=== PATIENT | female | born 1995 | race Caucasian/White ===

== ENCOUNTER 2017-10-31 15:23 | Emergency (ER) | payer OTHER, SELFPAY ==
[2017-10-31 15:56] LABS: #Lymphocytes 2.2 thou/uL (1.20-3.40); #Monocytes 0.9 thou/uL (0.11-0.59); %Basophils 0.3 % (0.0-1.0); %Eosinophils 0.3 % (0.0-10.0); %Lymphocytes 16.9 % (21.0-51.0); %Monocytes 6.5 % (0.0-10.0); Hemoglobin 14.2 g/dL (12.0-16.0); Mean Corpuscular HGB CONC 34.4 g/dL (32.0-36.0); Mean Corpuscular Hemoglobin 32.1 pg (27.0-31.0); Mean Corpuscular Volume 93.3 fL (78.0-98.0); Mean Platelet Volume 7.7 fL (7.4-10.4); Platelet Count 232 thou/uL (130-400); RBC Distribution Width 11.2 % (11.5-14.5); Red Blood Cell (RBC) Count 4.44 mill/uL (4.20-5.40); White Blood Cell (WBC) Count 13.2 thou/uL (4.8-10.8)
[2017-10-31 15:58] LABS: Bilirubin Negative (Negative); Blood, Urine Large (Negative); Clarity CLOUDY (Clear); Glucose, Urine (Dipstick) Negative (Negative); Leukocyte Large (Negative); Nitrite Negative (Negative); Protein, Urine (Dipstick) 100 mg/dL (Neg-Trace); Specific Gravity, Urine 1.019 (1.002-1.036); Urobilinogen 0.2 mg/dL (0.2-1.0)
[2017-10-31 16:00] LABS: Bacteria/HPF 2+ HPF (None Seen); Hyaline Casts/LPF 0-3 HYALINE CAST LPF (0-3 Hyaline); Pathc Cast-AUWi Flag 0.58 (0-2.49); RBC/HPF GREATER THAN 50-TNTC HPF (0-3); Squamous Epithelial 0-3 HPF (0-3)
[2017-10-31 16:40] LABS: BHCG - Serum Negative (NEGATIVE); Pregs Control Background? CLEAR/WHITE (CLR/WHITE); Pregs Control Bar Appear? YES (CONTROL BAR)
== END 2017-10-31 17:19 | disposition home or self-care (01) ==
LOC: ERS 15:23
DX: N30.01 Acute cystitis with hematuria (principal); F17.210 Nicotine dependence, cigarettes, uncomplicated
CPT/HCPCS: 36415; 81003; 81015; 84703; 85025; 87077; 87086; 87186; 99283

== ENCOUNTER 2018-05-09 15:11 | Emergency (ER) | payer SELFPAY ==
[2018-05-09 16:16] LABS: Bilirubin Negative (Negative); Blood, Urine Large (Negative); Clarity TURBID (Clear); Glucose, Urine (Dipstick) Negative (Negative); Leukocyte Large (Negative); Nitrite Positive (Negative); Protein, Urine (Dipstick) 300 mg/dL (Neg-Trace); Urobilinogen 0.2 mg/dL (0.2-1.0)
[2018-05-09 16:19] LABS: Bacteria/HPF 4+ HPF (None Seen); Pregnancy Test - Urine (BHCG) Negative (Negative); Pregu Control Background? CLEAR/WHITE (CLR/WHITE); Pregu Control Bar Appear? YES (CONTROL BAR); RBC/HPF GREATER THAN 50-TNTC HPF (0-3); Squamous Epithelial 0-3 HPF (0-3)
[2018-05-09 16:21] LABS: Pathc Cast-AUWi Flag 4.04 (0-2.49)
[2018-05-09 16:30] LABS: Hyaline Casts/LPF 0-3 HYALINE CAST LPF (0-3 Hyaline); Other Casts/LPF None Seen LPF (0-3 Hyaline)
== END 2018-05-09 16:45 | disposition home or self-care (01) ==
LOC: ERS 15:11
DX: N39.0 Urinary tract infection, site not specified (principal); F17.210 Nicotine dependence, cigarettes, uncomplicated; Z71.6 Tobacco abuse counseling
CPT/HCPCS: 81003; 81015; 81025; 87077; 87086; 87186; 99406

== ENCOUNTER 2018-06-30 20:40 | Emergency (ER) | payer MEDICAID, OTHER ==
[2018-06-30] MEDS ORDERED: Acetaminophen 325 MG TAB ONE (22:28)
[2018-06-30] MEDS ORDERED: Bicillin LA 1.2 MILLION UNITS/2 ML SYRINGE ONE (22:28)
[2018-06-30] MEDS ORDERED: Dexamethasone 10 MG/ML VIAL ONE (22:29)
== END 2018-06-30 22:40 | disposition home or self-care (01) ==
LOC: ERS 20:40
DX: O99.511 Diseases of the respiratory system complicating pregnancy, first trimester (principal); J02.9 Acute pharyngitis, unspecified; O99.331 Smoking (tobacco) complicating pregnancy, first trimester; F17.210 Nicotine dependence, cigarettes, uncomplicated; Z3A.08 8 weeks gestation of pregnancy
CPT/HCPCS: 87081; 87430; 96372; J0561; J1100

== ENCOUNTER 2019-02-06 08:55 | Inpatient (IN) | payer OTHER ==
[2019-02-08] MEDS ORDERED: Bupivacaine 0.25% HCL 30 ML VIAL ONE (09:00)
[2019-02-08] MEDS ORDERED: Acetaminophen 500 MG TAB PO PRN (22:16)
[2019-02-08] MEDS ORDERED: Ibuprofen 800 MG TAB PO PRN (22:16)
[2019-02-08] MEDS ORDERED: Docusate 100 MG CAP PO PRN (22:16)
[2019-02-08] MEDS ORDERED: Lidocaine 1% (PF) 30 ML VIAL SC PRN (22:16)
[2019-02-08] MEDS ORDERED: NS / Oxytocin 40 units/1000ml 1,000 ML IV PRN (22:16)
[2019-02-08] MEDS ORDERED: Promethazine HCl 25 MG/ML VIAL IM PRN (22:16)
[2019-02-08] MEDS ORDERED: Diphenoxylate HCl/Atropine Tablet PO PRN ×2 (22:16)
[2019-02-08] MEDS ORDERED: Misoprostol 200 MCG TAB PR PRN (22:16)
[2019-02-08] MEDS ORDERED: hydrALAZINE 20 MG/ML VIAL SLOW IVP PRN (22:16)
[2019-02-08] MEDS ORDERED: NS w/ Oxytocin 10 units 500 ML IV SCH ×2 (22:16)
[2019-02-08] MEDS ORDERED: HYDROcodone/Acetaminophen 5/325 mg Tablet PO PRN ×2 (22:16)
[2019-02-08] MEDS ORDERED: Zolpidem Tartrate 5 MG TAB PO PRN (22:16)
[2019-02-08] MEDS ORDERED: Ondansetron PF 4 MG/2 ML Vial IVP PRN (22:16)
[2019-02-08 22:30] VITALS: BMI 31.3
[2019-02-08] MEDS: Misoprostol 100 MCG TAB VAG SCH (22:35)
[2019-02-08] MEDS: Lactated Ringer's 1,000 ML IV SCH (22:38)
[2019-02-08 22:39] LABS: Hemoglobin 12.3 g/dL (12.0-16.0); Mean Corpuscular Hemoglobin 31.2 pg (27.0-31.0); Mean Corpuscular Volume 91.8 fL (78.0-98.0); Mean Platelet Volume 8.4 fL (7.4-10.4); Platelet Count 337 thou/uL (130-400); RBC Distribution Width 14.5 % (11.5-14.5); Red Blood Cell (RBC) Count 3.93 mill/uL (4.20-5.40); White Blood Cell (WBC) Count 16.3 thou/uL (4.8-10.8)
[2019-02-08 23:20] LABS: HBSAg Index 0.14 S/CO (0-0.99); Hep B Surf Ag Non-Reactive S/CO (NonReactive); Syphilis Antibody Nonreactive (Nonreactive); Syphilis Antibody Index 0.05 S/CO (<1.00 Non-Reactive)
[2019-02-09] MEDS: Misoprostol 100 MCG TAB VAG SCH ×3 (02:07→19:29)
[2019-02-09] MEDS: Butorphanol Tartrate 1 MG/ML VIAL SLOW IVP PRN ×3 (02:32→05:49)
[2019-02-09] MEDS: Lactated Ringer's 1,000 ML IV SCH ×3 (04:02→19:30)
[2019-02-09] MEDS ORDERED: Fentanyl 4 mcg/Bup 0.1% Cadd 100 ML ONE (07:36)
[2019-02-09] MEDS ORDERED: Benzocaine-Menthol 82.5 ML CAN TOP PRN (13:40)
[2019-02-09] MEDS ORDERED: Preparation H Ointment 28 GM TUBE PR PRN (13:40)
[2019-02-09] MEDS ORDERED: Promethazine HCl 25 MG/ML VIAL IM PRN ×2 (13:40→16:22)
[2019-02-09] MEDS ORDERED: Misoprostol 200 MCG TAB VAG PRN (13:40)
[2019-02-09] MEDS ORDERED: Zolpidem Tartrate 5 MG TAB PO PRN (13:40)
[2019-02-09] MEDS ORDERED: diphenhydrAMINE 25 MG CAP PO PRN (13:40)
[2019-02-09] MEDS ORDERED: Milk Of Magnesia 30 ML UDCUP PO PRN (13:40)
[2019-02-09] MEDS ORDERED: Acetaminophen/Codeine 30-300mg Tablet PO PRN (13:40)
[2019-02-09] MEDS ORDERED: Lanolin Ointment 7 GM TUBE TOP PRN (13:40)
[2019-02-09] MEDS ORDERED: Bisacodyl 10 MG SUPP PR PRN (13:40)
[2019-02-09] MEDS ORDERED: hydrALAZINE 20 MG/ML VIAL SLOW IVP PRN (13:40)
[2019-02-09] MEDS ORDERED: Ondansetron PF 4 MG/2 ML Vial IVP PRN ×2 (13:40→16:22)
[2019-02-09] MEDS ORDERED: NS / Oxytocin 40 units/1000ml 1,000 ML IV SCH (13:45)
[2019-02-09] MEDS ORDERED: Naloxone HCl 0.4 mg/ml Vial IVP PRN ×2 (16:22)
[2019-02-09] MEDS ORDERED: Lactated Ringer's 500 ML IV PRN (16:22)
[2019-02-09] MEDS ORDERED: ePHEDrine/0.9% NaCl/PF SYRINGE 50 mg/10 ml SLOW IVP PRN (16:22)
[2019-02-09] MEDS ORDERED: Acetaminophen 325 MG TAB PO PRN (16:22)
[2019-02-09] MEDS ORDERED: diphenhydrAMINE 50 MG/ML VIAL IVP PRN (16:22)
[2019-02-09] MEDS ORDERED: Fentanyl 4 mcg/Bupivacaine 0.1% Cassette 100 ML EPIDURAL SCH (16:30)
[2019-02-09] MEDS ORDERED: Communication Order-Pharmacy FS SCH (16:30)
[2019-02-09] MEDS: Acetaminophen/Codeine 30-300mg Tablet PO PRN (16:51)
[2019-02-09] MEDS: Ibuprofen 800 MG TAB PO SCH ×2 (16:52→21:26)
[2019-02-09] MEDS: Ferrous Sulfate 325 MG TAB PO SCH (17:38)
[2019-02-09] MEDS: Docusate Calcium (SURFAK) 240 MG CAP PO SCH (21:26)
[2019-02-10] MEDS: Ibuprofen 800 MG TAB PO SCH ×3 (05:28→21:45)
[2019-02-10] MEDS: Ferrous Sulfate 325 MG TAB PO SCH ×2 (09:09→17:16)
[2019-02-10] MEDS: Docusate Calcium (SURFAK) 240 MG CAP PO SCH ×2 (09:10→21:46)
[2019-02-10] MEDS: Prenatal Vitamin 1 TAB PO SCH (09:10)
[2019-02-10] MEDS: Acetaminophen/Codeine 30-300mg Tablet PO PRN ×2 (09:12→21:46)
[2019-02-10] MEDS: Adacel (T-DAP) 0.5 ML SYRINGE IM ONE (13:31)
[2019-02-11] MEDS: Ibuprofen 800 MG TAB PO SCH (05:51)
[2019-02-11] MEDS: Ferrous Sulfate 325 MG TAB PO SCH (09:57)
[2019-02-11] MEDS: Prenatal Vitamin 1 TAB PO SCH (09:58)
[2019-02-11] MEDS: Docusate Calcium (SURFAK) 240 MG CAP PO SCH (09:58)
[2019-02-11] MEDS: Adacel (T-DAP) 0.5 ML SYRINGE IM ONE (09:59)
[2019-02-11] MEDS: Acetaminophen/Codeine 30-300mg Tablet PO PRN (10:07)
[2019-02-11 14:25] VITALS: BP 118/61; TEMP 98.2
== END 2019-02-11 12:30 | disposition home or self-care (01) | DRG 807 ==
LOC: EDSTATUS 08:55 → L&D 02-08 22:11 → 3SW 02-09 16:41
PROVIDERS: ADMIT Obstetrics & Gynecology; ATTEND Obstetrics & Gynecology
PROC: 10D07Z6 Extraction of Products of Conception, Vacuum, Via Natural or Artificial Opening (ICD-10-PCS; principal; 2019-02-09)
PROC: 0KQM0ZZ Repair Perineum Muscle, Open Approach (ICD-10-PCS; 2019-02-09)
PROC: 3E0P7VZ Introduction of Hormone into Female Reproductive, Via Natural or Artificial Opening (ICD-10-PCS; 2019-02-09)
PROC: 10907ZC Drainage of Amniotic Fluid, Therapeutic from Products of Conception, Via Natural or Artificial Opening (ICD-10-PCS; 2019-02-09)
PROC: 3E0234Z Introduction of Serum, Toxoid and Vaccine into Muscle, Percutaneous Approach (ICD-10-PCS; 2019-02-10)
DX: O48.0 Post-term pregnancy (principal); Z37.0 Single live birth; Z3A.40 40 weeks gestation of pregnancy; Z23 Encounter for immunization; O76 Abnormality in fetal heart rate and rhythm complicating labor and delivery; O77.0 Labor and delivery complicated by meconium in amniotic fluid; O70.1 Second degree perineal laceration during delivery
CPT/HCPCS: 36415; 85027; 86780; 86850; 86900; 86901; 87340; 88307; 90715; J0595; J2590; S0020